=== PATIENT | female | born 1965 | race Caucasian/White ===

== ENCOUNTER → 2016-09-12 | Outpatient (CLI) | payer MEDICARE ==
[2016-09-12 14:52] LABS: ALANINE AMINOTRANSFERASE 37 U/L (9-52); ALBUMIN 4.4 g/dL (3.5-5.0); ALKALINE PHOSPHATASE 85 U/L (38-126); ANION GAP 12 (5-19); ASPARTATE AMINO TRANSFERASE 35 U/L (14-36); BILIRUBIN,DIRECT 0.2 mg/dL (0.0-0.4); BILIRUBIN,TOTAL 0.5 mg/dL (0.2-1.3); BLOOD UREA NITROGEN 9 mg/dL (7-20); CALCIUM 9.2 mg/dL (8.4-10.2); CARBON DIOXIDE 33 mmol/L (22-30); CHLORIDE 97 mmol/L (98-107); CREATININE RESULT 0.64 mg/dL (0.52-1.25); GLUCOSE 100 mg/dL (75-110); PHOSPHORUS 4.2 mg/dL (2.5-4.5); POTASSIUM 3.5 mmol/L (3.6-5.0); TOTAL PROTEIN 6.8 g/dL (6.3-8.2)
== END ==
LOC: OD 13:26
PROVIDERS: ATTEND Physician Assistant
DX: G89.4 Chronic pain syndrome (principal)
CPT/HCPCS: 36415; 80069; 80076

== ENCOUNTER 2017-01-12 21:14 | Emergency (ER) | payer MEDICARE ==
--- NOTE | 2017-01-12 22:38 | ER Document Report ---
ED General - General Chief Complaint: Ankle Swelling Stated Complaint: LEP PAIN Time Seen by Provider: 01/12/17 22:03 Notes: Patient is 51-year-old female presents with complaint of a dog leash got wrapped around her right lower leg. She says since then she has had some swelling and bruising is now going down into her ankle and foot. The leash wrapped around the mid part of her suero. Compartments are soft. She denies any numbness or tingling into her foot. No new injuries. No other complaints. He is not on blood thinners. TRAVEL OUTSIDE OF THE [place] IN LAST 30 DAYS: No - Related Data Allergies/Adverse Reactions: Sulfa (Sulfonamide Antibiotics) Adverse Reaction (Intermediate, Verified 21:19) Pruritis Past Medical History - Social History Smoking Status: Never Smoker Frequency of alcohol use: None Drug Abuse: None Family History: Reviewed & Not Pertinent Renal/ Medical History: Denies: Hx Peritoneal Dialysis Review of Systems - Review of Systems Notes: My Normal Review Basic REVIEW OF SYSTEMS: CONSTITUTIONAL : Denies fever, chills, or sweats. Denies recent illness. MUSCULOSKELETAL: Bruising and swelling in right lower leg. SKIN: Denies rash or skin lesions. NEUROLOGICAL: Denies altered mental status or loss of consciousness. Denies headache. Denies weakness or paralysis or loss of use of either side. Denies problems with gait or speech. Denies sensory or motor loss. ALL OTHER SYSTEMS REVIEWED AND NEGATIVE. Physical Exam - Vital signs Vitals: Temp Pulse Resp BP Pulse Ox 98.0 F 74 16 114/70 99 01/12/17 21:19 01/12/17 21:19 01/12/17 21:19 01/12/17 21:19 01/12/17 21:19 - Notes Notes: General Appearance: Well nourished, alert, cooperative, no acute distress, no obvious discomfort. Well-appearing. Vitals: reviewed, See vital signs table. Extremities: strength 5/5 in all extremities, good pulses in all extremities, some bruising on her right lower leg that starts around the mid suero works its way distally. Bruising is a circumferential. She does have some bruising has settled down around the ankle itself. Some mild tenderness to palpation around the mid suero and calf. All compartments are very soft. Distal pulses. Good distal sensation. She is able to bear weight. Skin: warm, dry, appropriate color, no rash Neuro: speech clear, oriented x 3, normal affect, responds appropriately to questions. Course - Re-evaluation Re-evalutation: 01/13/17 01:26 X-ray was performed to rule out a possible hairline fracture. It was negative. Patient appears just have some soft tissue injury. She has no signs of compartment syndrome. Her compartments are completely soft. I did explain to her compartment syndrome was in the signs and symptoms of this. I informed her to return to ER immediately if she has any other signs or symptoms such as increased swelling, tenseness or to palpation of the leg, or increasing pain. She agrees with plan and will be discharged home. Dictation of this chart was performed using voice recognition software; therefore, there may be some unintended grammatical errors. - Vital Signs Vital signs: Temp Pulse Resp BP Pulse Ox 98.0 F 71 17 120/76 100 01/12/17 23:35 01/12/17 23:35 01/12/17 23:35 01/12/17 23:35 01/12/17 23:35 Discharge - Discharge Clinical Impression: Contusion of leg, right Qualifiers: Encounter type: initial encounter Qualified Code(s): S80.11XA - Contusion of right lower leg, initial encounter Condition: Good Disposition: HOME, SELF-CARE Additional Instructions: Your xray was negative for any fracture. please keep your leg elevated on pillows when sleeping. Please go to the nearest ER immediately if you develop firmness in your leg or increasing pain. Forms: Return to Work
--- NOTE | 2017-01-12 23:01 | RADIOLOGY REPORT (SQ) ---
EXAM DESCRIPTION: TIBIA FIBULA RIGHT COMPLETED DATE/TIME: 01/12/2017 10:48 pm REASON FOR STUDY: pain COMPARISON: None. NUMBER OF VIEWS: Two views. TECHNIQUE: Two radiographic images acquired of the right tibia and fibula to include the knee and an kle in at least one projection. LIMITATIONS: None. FINDINGS: MINERALIZATION: Normal. BONES: No acute fracture or dislocation. No worrisome bone lesions. SOFT TISSUES: No obvious swelling or foreign body. OTHER: No other significant finding. IMPRESSION: NO RADIOGRAPHIC EVIDENCE OF ACUTE INJURY. TECHNICAL DOCUMENTATION: JOB ID: [id number] [employer]- All Rights Reserved
[2017-01-12 23:40] VITALS: BP 120/76
== END 2017-01-12 23:35 | disposition home or self-care (01) ==
LOC: ER 21:14
DX: S80.11XA Contusion of right lower leg, initial encounter (principal); M25.571 Pain in right ankle and joints of right foot; M79.89 Other specified soft tissue disorders; M79.604 Pain in right leg; X58.XXXA Exposure to other specified factors, initial encounter
CPT/HCPCS: 99283

== ENCOUNTER → 2017-04-24 | Outpatient (CLI) | payer MEDICARE ==
--- NOTE | 2017-04-27 12:31 | WOMENS IMAGING REPORT ---
EXAM DESCRIPTION: BILAT SCREENING MAMMO W/CAD COMPLETED DATE/TIME: 04/24/2017 10:02 am REASON FOR STUDY: ROUTINE SCREENING; Z12.31 Z12.31 ENCNTR SCREEN MAMMOGRAM FOR MALIGNANT NEOPLASM O F MELLY COMPARISON: None. TECHNIQUE: Standard craniocaudal and mediolateral oblique views of each breast recorded using [employer] System[employer] l acquisition. LIMITATIONS: None. FINDINGS: RIGHT BREAST MASSES: No suspicious masses. CALCIFICATIONS: No new or suspicious calcifications. ARCHITECTURAL DISTORTION: None. DEVELOPING DENSITY: None. ASYMMETRY: None noted. OTHER: No other significant findings. LEFT BREAST MASSES: No suspicious masses. CALCIFICATIONS: No new or suspicious calcifications. ARCHITECTURAL DISTORTION: None. DEVELOPING DENSITY: None. ASYMMETRY: Focal area of asymmetry in the upper-outer breast, located 10 cm from the nipple. This is most noticeable on the CC images. OTHER: No other significant findings. Read with the assistance of CAD. .[facility] - R2 Cenova Version 1.3 .[facility] - R2 Cenova Version 1.3 .[facility] - R2 Cenova Version 2.4 .[facility] R2 Cenova Version 2.4 .[facility] - R2 [employer] Version 9.2 IMPRESSION: Focal area of asymmetry in the upper-outer left breast. This is probably due to asymmet valentina parenchyma. No worrisome mammographic findings in the right breast. BREAST DENSITY: b. There are scattered areas of fibroglandular density. BIRAD: 0 Incomplete: Needs Additional Imaging Evaluation and/or prior Mammograms for Comparison. RECOMMENDATION: RECOMMENDED FOLLOW-UP: Recommend additional evaluation with breast tomosynthesis (pr eferred) or compression views of the left breast and follow-up ultrasound if indicated. Recommend ro utine screening mammography of the right breast. The patient will be contacted for additional imaging. COMMENT: The patient has been notified of the results by letter per [place] requirements. Additional no tification policies are in place for contacting patient with suspicious or incomplete findings. Quality ID #[id number]: The [employer] recommends an annual screening mammogram for women aged 40 years or over. This facility utilizes a reminder system to ensure that all patients receive reminder letters, and/or direct phone calls for appointments. This includes reminders for routine scr eening mammograms, diagnostic mammograms, or other Breast Imaging Interventions when appropriate. Th is patient will be placed in the appropriate reminder system. The [employer] (ACR) has developed recommendations for screening MRI of the breast s in certain patient populations, to be used in conjunction with mammography. Breast MRI surveillanc e may be appropriate for women with more than 20% lifetime risk of developing breast cancer as deter mined by genetic testing, significant family history of the disease, or history of mantle radiation f or Hodgkins Disease. ACR Practice Guidelines 2008. TECHNICAL DOCUMENTATION: FINDING NUMBER: (1) ASSESSMENT: (1) JOB ID: [id number] [employer]- All Rights Reserved
== END ==
LOC: WI 09:55
PROVIDERS: ATTEND Family Medicine
DX: Z12.31 Encounter for screening mammogram for malignant neoplasm of breast (principal)
CPT/HCPCS: 77067; G0202

== ENCOUNTER → 2017-05-23 | Outpatient (CLI) | payer MEDICARE ==
--- NOTE | 2017-05-23 10:44 | WOMENS IMAGING REPORT ---
EXAM DESCRIPTION: 3D DX MAMMO LEFT UNILAT; U/S BREAST UNILAT LIMITED COMPLETED DATE/TIME: 05/23/2017 9:25 am; 05/23/2017 10:18 am REASON FOR STUDY: N63.21; LEFT BREAST ASYMMETRY N63.21 N63.21 UNSPECIFIED LUMP IN THE LEFT BREAST, UPPER OUTER QUAD COMPARISON: 04/24/2017. TECHNIQUE: Additional images with true lateral and compression CC mammograms and lateral, MLO, and C C images with tomosynthesis. LIMITATIONS: None. FINDINGS: BREAST: left MASSES: No suspicious masses. CALCIFICATIONS: No new or suspicious calcifications. ARCHITECTURAL DISTORTION: None. DEVELOPING DENSITY: None. ASYMMETRY: None noted. OTHER: No other significant findings. BREAST ULTRASOUND: TECHNIQUE: Static and dynamic grayscale images acquired of the left breast in the specific areas of c linical/mammographic concern. Selected color Doppler images recorded. ELASTOGRAPHY PERFORMED: No. LIMITATIONS: None. FINDINGS: MASS: No mass identified. Normal glandular tissue. ELASTOGRAPHY CHARACTERISTICS: Not applicable. OTHER: No other significant finding. IMPRESSION: Density in the upper-outer left breast has the appearance of parenchyma with no underlyi ng mass or architectural distortion. No worrisome mammographic or sonographic findings. BREAST DENSITY: b. There are scattered areas of fibroglandular density. BIRAD: 2 Benign findings. RECOMMENDATION: RECOMMENDED FOLLOW UP: Birads 1 or 2: The patient should resume routine screening . SPECIFIC INTERVENTION/IMAGING/CONSULTATION RECOMMENDED:No additional intervention/ imaging/consultati on needed at this time. COMMUNICATION:The imaging findings were not discussed with the patient. Her referring provider has be en notified of the findings. COMMENT: The patient has been notified of the results by letter per MQSA requirements. Additional no tification policies are in place for contacting patient with suspicious or incomplete findings. Quality ID #[id number]: The [employer] recommends an annual screening mammogram for women aged 40 years or over. This facility utilizes a reminder system to ensure that all patients receive reminder letters, and/or direct phone calls for appointments. This includes reminders for routine scr eening mammograms, diagnostic mammograms, or other Breast Imaging Interventions when appropriate. Th is patient will be placed in the appropriate reminder system. The [employer] (ACR) has developed recommendations for screening MRI of the breast s in certain patient populations, to be used in conjunction with mammography. Breast MRI surveillanc e may be appropriate for women with more than 20% lifetime risk of developing breast cancer as deter mined by genetic testing, significant family history of the disease, or history of mantle radiation f or Hodgkins Disease. ACR Practice Guidelines 2008. DBT Technology DBT is a type of tomographic mammography. With conventional mammography, overlapping breast tissue ma y make lesions difficult to detect, even with good compression. DBT uses an x-ray tube that rotates a round the breast, taking images at different angles. These images are then combined to create thin sl ices of the breast that the radiologist can view as a 3D reconstruction. The [employer] unit can perform full-field digital mammograms (2D imaging); or DBT (3D imaging); or both, in a combination mode that quickly performs both the mammogram and the tomosynthesis scan while the breast is still compressed. PQRS 6045F: Fluoroscopic imaging is not utilized for breast tomosynthesis. TECHNICAL DOCUMENTATION: FINDING NUMBER: (1) ASSESSMENT: (1) JOB ID: [id number] [employer]- All Rights Reserved
== END ==
LOC: WI 09:04
PROVIDERS: ATTEND Family Medicine
DX: N63.21 Unspecified lump in the left breast, upper outer quadrant (principal)
CPT/HCPCS: 76642; G0279; G0206

== ENCOUNTER 2017-05-26 23:33 | Emergency (ER) | payer MEDICARE ==
[2017-05-26] MEDS ORDERED: ACETAMINOPHEN 325 MG TABLET PO ONE (23:52)
[2017-05-26] MEDS ORDERED: NORMAL SALINE 1000 ML 1,000 ML IV PRN (23:54)
--- NOTE | 2017-05-27 00:39 | ER Document Report ---
ED General - General Chief Complaint: Fever Stated Complaint: DIZZINESS Time Seen by Provider: 05/26/17 23:52 Notes: The patient is a 52-year-old female, past medical history multiple sclerosis, chronic pain, former smoker (quit 1 year ago), presents with 2 hours of lightheadedness, nausea and an episode of vomiting. EMS arrived, provided her with 4 mg IV Zofran and Tylenol because she had a fever, but she vomited the Tylenol. She is having a dull headache, but denies neck stiffness, blurry vision , cough, shortness of breath, abdominal pain, urinary symptoms, flank pain, rash , recent travel, back pain or chest pain. TRAVEL OUTSIDE OF THE [place] IN LAST 30 DAYS: No - Related Data Allergies/Adverse Reactions: Sulfa (Sulfonamide Antibiotics) Adverse Reaction (Intermediate, Verified 21:19) Pruritis Past Medical History - General Information source: Patient - Social History Smoking Status: Former Smoker Chew tobacco use (# tins/day): No Drug Abuse: None Family History: Reviewed & Not Pertinent Patient has suicidal ideation: No Patient has homicidal ideation: No - Past Medical History Cardiac Medical History: Reports: Hx Hypercholesterolemia - simvastatin, Hx Hypertension Renal/ Medical History: Denies: Hx Peritoneal Dialysis Review of Systems - Review of Systems Notes: REVIEW OF SYSTEMS: CONSTITUTIONAL: +fevers, -chills EENT: -eye pain, -difficulty swallowing, -nasal congestion CARDIOVASCULAR:-chest pain, -syncope. RESPIRATORY: -cough, -SOB GASTROINTESTINAL: -abdominal pain, +nausea, +vomiting, -diarrhea GENITOURINARY: -dysuria, -hematuria MUSCULOSKELETAL: -back pain, -neck pain SKIN: -rash or skin lesions. HEMATOLOGIC: -easy bruising or bleeding. LYMPHATIC: -swollen, enlarged glands. NEUROLOGICAL: -altered mental status or loss of consciousness, +headache, - neurologic symptoms PSYCHIATRIC: -anxiety, -depression. ALL OTHER SYSTEMS REVIEWED AND NEGATIVE. Physical Exam - Vital signs Vitals: Temp Pulse Resp BP Pulse Ox 103.9 F H 113 H 20 125/60 92 05/26/17 23:45 05/26/17 23:45 05/26/17 23:45 05/26/17 23:45 05/26/17 23:45 - Notes Notes: PHYSICAL EXAMINATION: GENERAL: Well-appearing, well-nourished and in no acute distress. HEAD: Atraumatic, normocephalic. EYES: Pupils equal round and reactive to light, extraocular movements intact, sclera anicteric, conjunctiva are normal. ENT: nares patent, oropharynx clear without exudates. Moist mucous membranes. NECK: Normal range of motion, supple without lymphadenopathy LUNGS: Breath sounds clear to auscultation bilaterally and equal. No wheezes rales or rhonchi. HEART: Tachycardia ABDOMEN: Soft, nontender, normoactive bowel sounds. No guarding, no rebound. No masses appreciated. EXTREMITIES: Normal range of motion, no pitting or edema. No cyanosis. NEUROLOGICAL: Cranial nerves grossly intact. Normal speech, normal gait. Normal sensory and motor exams. PSYCH: Normal mood, normal affect. SKIN: Warm, Dry, normal turgor, no rashes or lesions noted. Course - Re-evaluation Re-evalutation: Patient appears very well and is in no acute distress. She presented with nausea and vomiting that resolved after IV Zofran and IVF. BAdominal exam is completely non-tender. She also was found to have a fever that she was unaware of. Patient's chest x-ray did not show any acute abnormalities, flu swabs were negative, urine was negative for UTI and she is not having any symptoms of meningitis or encephalitis. Fever resolved with Tylenol and Motrin. Patient is not immunocompromised. Spoke to patient that we are unable to find a source for her fever at this time and since she appears well to continue Tylenol and Motrin with plenty of fluids. Her initial tachycardia on arrival to the ER resolved after IVF and antipyretics. Her oxygenation remained around 92%, but patient has smoked for decades and quit last year. No respiratory distress and lung sounds are clear. Gave patient very strict return precautions and she understands. - Vital Signs Vital signs: Temp Pulse Resp BP Pulse Ox 103.9 F H 113 H 20 125/60 92 05/26/17 23:45 05/26/17 23:45 05/26/17 23:45 05/26/17 23:45 05/26/17 23:45 - Laboratory Result Diagrams: 05/27/17 00:22 05/27/17 00:22 Laboratory results interpreted by me: 05/27/17 05/27/17 05/27/17 00:05 00:22 00:22 WBC 14.3 H Seg Neutrophils % 81.3 H Lymphocytes % 12.6 L Absolute Neutrophils 11.7 H Total Bilirubin 0.1 L Urine Glucose (UA) 50 H - Diagnostic Test Radiology reviewed: Image reviewed, Reports reviewed Radiology results interpreted by me: CXR: NAD Discharge - Discharge Clinical Impression: Fever Qualifiers: Fever type: unspecified Qualified Code(s): R50.9 - Fever, unspecified Nausea and vomiting Qualifiers: Vomiting type: unspecified Vomiting Intractability: non-intractable Qualified Code(s): R11.2 - Nausea with vomiting, unspecified Condition: Stable Disposition: HOME, SELF-CARE Additional Instructions: There is no source for your fever at this time. Continue to stay hydrated by drinking plenty of fluids. Use Zofran for any nausea. Tylenol and Motrin for any fevers. Return to the ER if you have any worsening symptoms or any other concerns. FEVER: Fever is the body's reaction to infection. Fever can also occur with illnesses that create fever-producing substances in the body. By itself, fever is not harmful. It helps the body fight invading germs. We are more concerned with: (1) What's causing the fever? (2) How can we keep you more comfortable until the fever goes away? Early in an illness, symptoms are often so vague that a diagnosis can't be made. If the doctor hasn't identified a clear cause for your fever, you will probably develop new symptoms within the next two days. Contact the doctor if you develop severe worsening headache, rash, chest pain, cough with yellow or green sputum, difficulty breathing, abdominal pain, or other new symptoms. There is no reason to treat a fever if you're comfortable. If the fever is causing aches, headache, and fatigue, you can treat it with ibuprofen (Advil , Nuprin, etc) or acetaminophen (Tylenol). Follow the directions on the bottle. Get plenty of liquids (three quarts per day). Rest. Physical work or sports will raise the temperature higher and make you feel much worse. Dress lightly. If you're chilling, this means the temperature is trying to go higher. Take ibuprofen or acetaminophen. When you feel sweaty and "feverish" the temperature is coming down. If the fever doesn't go away within two days or if you become more ill, call the doctor or return at once for re-examination. NORMAL EXAM AND WORKUP: At this time, with the exception of fever, your examination and workup show no significant abnormality. No significant abnormal physical findings were noted. All laboratory, EKG, and imaging (x-ray, CT scans, ultrasound) studies that were ordered show no significant abnormality. Although your examination and all studies that were ordered showed no significant abnormal finding, there are no examinations and no studies that are 100% accurate. There is always the possibility that some abnormality could exist and not be detected with physical examination or within the limits and capabilities of laboratory and other studies. You should return or follow up as you were instructed on your visit today for further evaluation if your symptoms do not resolve. VIRAL SYNDROME: The physician has diagnosed a likely viral infection. Viruses not only cause "colds," but can cause many different symptoms including generalized aching, fever, headache, cough, diarrhea, nausea, vomiting, and fatigue. The treatment, for the most part, is simply relief of symptoms. This means that antibiotics are usually not given. Rest, fluids, pain medications and, occasionally, medication for the specific symptoms that are most bothersome will be prescribed. Use good handwashing to avoid passing the virus to others. Shared toys should be cleaned with disinfectant. Clean the toilets, sinks, and counter surfaces in bathrooms. Launder clothing in hot water. Contact the physician if you develop any new or unusual symptoms such as severe headache, stiff neck, high fever, chest pain, productive cough, or shortness of breath. You should be rechecked if you don't see marked improvement within seven to 10 days. USE OF ACETAMINOPHEN (Tylenol): Acetaminophen may be taken for pain relief or fever control. It's much safer than aspirin, offering a wider range of "safe" dosages. It is safe during . Some brand names are Tylenol, Panadol, Datril, Anacin 3, Tempra, and Liquiprin. Acetaminophen can be repeated every four hours. The following are maximum recommended dosages: WEIGHT Dose Drops Elixir Chewable( 80mg) (LBS.) drprs=droppers tsp=teaspoon 6 40 mg 0.4 ml (1/2) 6-11 80 mg 0.8 ml (full) tsp 1 tab 12-16 120 mg 1 1/2 drprs 3/4 tsp 1 1/2 tabs 17-23 160 mg 2 drprs 1 tsp 2 tabs 24-30 240 mg 3 drprs 1 1/2 tsp 3 tabs 30-35 320 mg 2 tsp 4 tabs 36-41 360 mg 2 1/4 tsp 4 1/2 tabs 42-47 400 mg 2 1/2 tsp 5 tabs 48-53 480 mg 3 tsp 6 tabs 54-59 520 mg 3 1/4 tsp 6 1/2 tabs 60-64 560 mg 3 1/2 tsp 7 tabs 65-70 600 mg 3 3/4 tsp 7 1/2 tabs 71-76 640 mg 4 tsp 8 tabs 77-82 720 mg 4 1/2 tsp 9 tabs 83-88 800 mg 5 tsp 10 tabs >89 pounds or adults 650 mg to 900 mg Acetaminophen can be repeated every four hours. Maximum dose not to exceed 4000 mg a day. These maximum recommended dosages are slightly higher than the dosages written on the product container, but these dosages are very safe and below the toxic dosage for acetaminophen. FOLLOW-UP CARE: If you have been referred to a physician for follow-up care, call the physician s office for an appointment as you were instructed or within the next two days. If you experience worsening or a significant change in your symptoms, notify the physician immediately or return to the Emergency Department at any time for re-evaluation. VOMITING: Vomiting (or nausea without vomiting) can be caused by many other different problems. It can mean that something's wrong with the stomach, such as ulcers or inflammation or the intestinal tract, such as appendicitis. But it can also be a symptom of a problem that has nothing to do with the stomach or intestines. Vomiting is common with severe headaches, earaches, tonsillitis, and kidney infections, etc. We see it with pneumonia or heart attacks. Drugs can cause nausea and vomiting. Many abdominal problems cause vomiting; for example, gallstones, kidney stones, pancreatitis, and intestinal obstruction ( blocked bowels). In most cases, curing the vomiting depends on fixing the problem that caused it. For temporary relief, we may use an anti-nausea medicine. For home use, we can prescribe suppositories, chewable pills, pills that dissolve in the mouth, or liquid anti-nausea drugs. If the vomiting seems to be caused by a problem in the stomach, acid-suppressing drugs may be prescribed as well. It's important to avoid dehydration. Sip small amounts of clear liquids ( soft drinks, tea, broth, etc) . Try to take fluids frequently even if you are vomiting to prevent dehydration. Take increasing amounts of fluid and when liquids are being consumed successfully, advance to small amounts of bland food (toast, soups, mashed potatoes, etc.) until you are able to resume a regular diet. Avoid aspirin, tobacco, and alcohol. If the vomiting worsens, if the problem that's making you vomit worsens, or if there's evidence of bleeding in the stomach (such as black, tarry stool, or bloody or black vomit), you should return immediately. Also, return if abdominal pain worsens or becomes localized to one area or you develop high fever. Call your doctor if you aren't improved in 24 hours. INTRAVENOUS (I V) FLUIDS: As part of your care today, you received intravenous (IV) fluids. IV fluids are administered to patients who are dehydrated or to those who have certain chemical (electrolyte) abnormalities that need correcting. ANTINAUSEA MEDICATION: You have been given a medication to suppress nausea and vomiting. This type of medication can be given as a shot, pill, or suppository. It will usually last for many hours. Pills and shots usually last six to eight hours. For the typical illness, only one or two doses of the medication may be necessary. Mild lightheadedness may occur. This type of medicine can cause drowsiness. Do not drive or operate dangerous machinery while under its influence. Do not mix with alcohol. See your doctor at once if you have muscle spasms or tightness, or uncontrollable motions (particularly of the neck, mouth, or jaw). Persistent vomiting or severe lightheadedness should also be evaluated by the physician. FOLLOW-UP CARE: If you have been referred to a physician for follow-up care, call the physician s office for an appointment as you were instructed or within the next two days. If you experience worsening or a significant change in your symptoms, notify the physician immediately or return to the Emergency Department at any time for re-evaluation. Prescriptions: Ondansetron [Zofran Odt 4 mg Tablet] 1 - 2 tab PO Q4H PRN #15 tab.rapdis PRN Reason: For Nausea/Vomiting Referrals: JARROD DANIELSON MD [Primary Care Provider] - Follow up as needed
[2017-05-27 00:48] LABS: ABSOLUTE EOSINOPHILS # (AUTO) 0.1 10^3/uL (0.0-0.6); ABSOLUTE LYMPHOCYTES (AUTO) 1.8 10^3/uL (0.5-4.7); ABSOLUTE MONOCYTES (AUTO) 0.7 10^3/uL (0.1-1.4); ABSOLUTE NEUT (AUTO) 11.7 10^3/uL (1.7-8.2); BASOPHILS % (AUTO) 0.2 % (0-2); HEMATOCRIT 43.4 % (36.0-47.0); HEMOGLOBIN 14.2 g/dL (12.0-15.5); LYMPHOCYTES % (AUTO) 12.6 % (13-45); MEAN CORPUSCULAR HEMOGLOBIN 29.9 pg (27.0-33.4); MEAN CORPUSCULAR HGB CONC 32.7 g/dL (32.0-36.0); MEAN CORPUSCULAR VOLUME 91 fl (80-97); MONOCYTES % (AUTO) 4.9 % (3-13); PLATELET COUNT 212 10^3/uL (150-450); RED BLOOD COUNT 4.75 10^6/uL (3.72-5.28); RED CELL DISTRIBUTION WIDTH 13.8 % (11.5-14.0); SEGMENTED NEUTROPHILS % (AUTO) 81.3 % (42-78); TOTAL CELLS COUNTED % (AUTO) 100 %; WHITE BLOOD COUNT 14.3 10^3/uL (4.0-10.5)
[2017-05-27 01:03] LABS: ALANINE AMINOTRANSFERASE 24 U/L (9-52); ALBUMIN 3.9 g/dL (3.5-5.0); ALKALINE PHOSPHATASE 96 U/L (38-126); ANION GAP 11 (5-19); ASPARTATE AMINO TRANSFERASE 19 U/L (14-36); BILIRUBIN,DIRECT 0.1 mg/dL (0.0-0.4); BILIRUBIN,TOTAL 0.1 mg/dL (0.2-1.3); BLOOD UREA NITROGEN 15 mg/dL (7-20); CALCIUM 9.1 mg/dL (8.4-10.2); CARBON DIOXIDE 27 mmol/L (22-30); CHLORIDE 107 mmol/L (98-107); CREATINE KINASE 111 U/L (30-135); GLUCOSE 80 mg/dL (75-110); LIPASE 66.7 U/L (23-300); POTASSIUM 3.6 mmol/L (3.6-5.0); SODIUM 144.6 mmol/L (137-145); TOTAL PROTEIN 6.3 g/dL (6.3-8.2)
[2017-05-27 01:05] LABS: VENOUS BLOOD BASE EXCESS 0.3 mmol/L; VENOUS BLOOD HCO3 27.2 mmol/L (20-32); VENOUS BLOOD PCO2 53.2 mmHg (35-63); VENOUS BLOOD PH 7.33 (7.30-7.42)
[2017-05-27 01:06] LABS: APPEARANCE,URINE CLEAR; BILIRUBIN,URINE NEGATIVE (NEGATIVE); COLOR,URINE YELLOW; GLUCOSE, URINE 50 mg/dL (NEGATIVE); KETONES,URINE NEGATIVE (NEGATIVE); LEUKOCYTE ESTERASE,URINE NEGATIVE (NEGATIVE); NITRITE,URINE NEGATIVE (NEGATIVE); PROTEIN,URINE NEGATIVE (NEGATIVE); URINE SPECIFIC GRAVITY 1.017; UROBILINOGEN,URINE NEGATIVE mg/dL (<2.0)
[2017-05-27 01:21] LABS: A TYPE INFLUENZA AG NEGATIVE (NEGATIVE); B INFLUENZA AG NEGATIVE (NEGATIVE)
--- NOTE | 2017-05-27 02:11 | RADIOLOGY REPORT (SQ) ---
EXAM DESCRIPTION: CHEST SINGLE VIEW CLINICAL HISTORY: fever COMPARISON: None. FINDINGS: Single frontal view of the chest. The cardiomediastinal silhouette has normal size and contour. No consolidation, pneumothorax, or pleural effusion. No displaced rib fractures identified. Upper abdominal soft tissues are unremarkable. Leads overlie the chest. IMPRESSION: 1. No acute pulmonary process identified.
[2017-05-27] MEDS ORDERED: NAPROXEN 250 MG TABLET PO ONE (02:22)
[2017-05-27 03:03] VITALS: BP 98/69
--- NOTE | 2017-05-27 12:36 | EKG REPORT ---
SEVERITY:- NORMAL ECG - SINUS RHYTHM : Confirmed by: Sandra Trejo MD 27-May-2017 12:36:17
== END 2017-05-27 03:03 | disposition home or self-care (01) ==
LOC: ER 23:33
DX: R50.9 Fever, unspecified (principal); R11.2 Nausea with vomiting, unspecified; R42 Dizziness and giddiness; G35 Multiple sclerosis; R51 Headache; I10 Essential (primary) hypertension; Z88.2 Allergy status to sulfonamides; Z87.891 Personal history of nicotine dependence
CPT/HCPCS: 93005; 99284; 96360; 36415; 82550; 83690; 85025; 80053; 81001; 82803; 83605; 87804; 71010; 93010; A9270 ×2; J7030

== ENCOUNTER → 2019-01-17 | Outpatient (CLI) | payer MEDICARE ==
--- NOTE | 2019-01-17 14:42 | RADIOLOGY REPORT (SQ) ---
EXAM DESCRIPTION: MRI LT LOWER JOINT WITHOUT COMPLETED DATE/TIME: 01/17/2019 11:44 am REASON FOR STUDY: M25.562 PAIN IN LEFT KNEE M25.562 PAIN IN LEFT KNEE COMPARISON: None. TECHNIQUE: Leftknee images acquired and stored on PACS. Multiplanar images include fat sensitive se quences as T1, water sensitive sequences as FST2 or STIR, cartilage sensitive sequences as FSPD, and gradient echo sequences. LIMITATIONS: None. FINDINGS: JOINT AND BURSAE: No effusion. BONE CORTEX AND MARROW: No alteration of signal to suggest marrow replacement. No worrisome bone lesi ons. No occult fracture. ACL: High-grade chronic appearing tear with ganglion cyst formation. PCL: Increased signal in the proximal portion suggesting partial remote injury. MCL: Intact. No periligamentous edema or fluid. LCL: Intact. No periligamentous edema or fluid. MEDIAL MENISCUS: No acute tears. Mild truncation of the midbody consistent with prior debridement. LATERAL MENISCUS: No tears. No abnormal signal. MEDIAL COMPARTMENT: High-grade chondromalacia in the weight-bearing surface. No bone bruises or reac tive marrow edema. Small osteophytes. LATERAL COMPARTMENT: Mild chondromalacia. No bone bruises or reactive marrow edema. No osteophytes. PATELLA: No chondromalacia. No subchondral cysts. Medial and lateral retinacula intact. EXTENSOR MECHANISM: Intact. SOFT TISSUES: Small Bunch cyst. Adjacent muscles and subcutaneous tissues normal. Normal flow void in popliteal artery and vein. OTHER: No other significant finding. IMPRESSION: High-grade chronic appearing ACL tear with ganglion cyst formation.Increased signal in t he proximal portion of the PCL suggesting partial remote injury.Mild truncation of the medial menisca l midbody consistent with prior debridement. TECHNICAL DOCUMENTATION: JOB ID: [id number] [place]-72 2010 [employer]- All Rights Reserved Reading location - IP/workstation name: [email or web address]
== END ==
LOC: RAD 11:05
PROVIDERS: ATTEND Orthopaedic Surgery
DX: M25.562 Pain in left knee (principal); M22.42 Chondromalacia patellae, left knee; M23.8X2 Other internal derangements of left knee; M67.462 Ganglion, left knee

== ENCOUNTER 2019-01-31 13:45 | Inpatient (IN) | payer MEDICARE ==
[2019-01-31] MEDS ORDERED: NORMAL SALINE 1000 ML 1,000 ML IV ONE (14:21)
[2019-01-31 14:29] LABS: APPEARANCE,URINE CLEAR; BILIRUBIN,URINE NEGATIVE (NEGATIVE); COLOR,URINE STRAW; GLUCOSE, URINE NEGATIVE (NEGATIVE); KETONES,URINE NEGATIVE (NEGATIVE); LEUKOCYTE ESTERASE,URINE NEGATIVE (NEGATIVE); NITRITE,URINE NEGATIVE (NEGATIVE); PROTEIN,URINE NEGATIVE (NEGATIVE); URINE SPECIFIC GRAVITY 1.008; UROBILINOGEN,URINE NEGATIVE mg/dL (<2.0)
[2019-01-31 14:46] LABS: MEAN CORPUSCULAR HGB CONC 32.7 g/dL (32.0-36.0); MEAN CORPUSCULAR VOLUME 89 fl (80-97); PLATELET COUNT 221 10^3/uL (150-450); RED BLOOD COUNT 5.18 10^6/uL (3.72-5.28); RED CELL DISTRIBUTION WIDTH 13.9 % (11.5-14.0); WHITE BLOOD COUNT 22.1 10^3/uL (4.0-10.5)
[2019-01-31 14:53] LABS: ALBUMIN 4.1 g/dL (3.5-5.0); ALKALINE PHOSPHATASE 76 U/L (38-126); ANION GAP 8 (5-19); ASPARTATE AMINO TRANSFERASE 29 U/L (14-36); BILIRUBIN,DIRECT 0.2 mg/dL (0.0-0.4); BILIRUBIN,TOTAL 0.6 mg/dL (0.2-1.3); BLOOD UREA NITROGEN 15 mg/dL (7-20); CALCIUM 9.1 mg/dL (8.4-10.2); CARBON DIOXIDE 29 mmol/L (22-30); CHLORIDE 103 mmol/L (98-107); CREATINE KINASE 228 U/L (30-135); GLUCOSE 101 mg/dL (75-110); POTASSIUM 4.2 mmol/L (3.6-5.0); TOTAL PROTEIN 6.7 g/dL (6.3-8.2)
[2019-01-31] MEDS ORDERED: VANCOMYCIN HCL INJ 1000 MG VIAL IV ONE (15:00)
[2019-01-31] MEDS ORDERED: PIPERACILLIN/TAZOBACTAM 3.375 GM VIAL IV ONE (15:01)
[2019-01-31 15:05] LABS: ABSOLUTE LYMPHOCYTES# (MANUAL) 3.1 10^3/uL (0.5-4.7); ABSOLUTE MONOCYTES # (MANUAL) 0.2 10^3/uL (0.1-1.4); BAND NEUTROPHILS % (MANUAL) 1 % (3-5); BASOPHILS % (MANUAL) 0 % (0-2); EOSINOPHILS % (MANUAL) 0 % (0-6); LYMPHOCYTES % (MANUAL) 13 % (13-45); MONOCYTES % (MANUAL) 1 % (3-13); SEGMENTED NEUTROPHILS % (MAN) 84 % (42-78); TOTAL CELLS COUNTED 100
[2019-01-31 15:06] LABS: OVALOCYTES SLIGHT; PLATELET COMMENT ADEQUATE; POIKILOCYTOSIS SLIGHT
--- NOTE | 2019-01-31 15:08 | RADIOLOGY REPORT (SQ) ---
EXAM DESCRIPTION: CHEST SINGLE VIEW COMPLETED DATE/TIME: 01/31/2019 2:56 pm REASON FOR STUDY: Fever, tachycardia, hypotension COMPARISON: 01/20/2018 NUMBER OF VIEWS: One view. TECHNIQUE: Single frontal radiographic image of the chest acquired. LIMITATIONS: None. FINDINGS: LUNGS AND PLEURA: Stable appearance. MEDIASTINUM AND HILAR STRUCTURES: Stable heart size and mediastinal structures. HEART AND VASCULAR STRUCTURES: Stable appearance. SUPPORT DEVICES: Appropriate location without change. BONES: No acute findings. OTHER: No other significant finding. IMPRESSION: STABLE APPEARANCE OF THE CHEST. SUPPORT DEVICES UNCHANGED. TECHNICAL DOCUMENTATION: JOB ID: [id number] [employer]- All Rights Reserved Reading location - IP/workstation name: [email or web address]
--- NOTE | 2019-01-31 15:22 | ER Document Report ---
Entered by ALEAJ MACK SCRIBE 01/31/19 [id number] Acting as scribe for:ARLENE FRAUSTO MD ED Fever - General Chief Complaint: Fever Stated Complaint: COUGH Time Seen by Provider: 01/31/19 13:55 Primary Care Provider: FLORI HARRIS MD [ACTIVE STAFF] - Follow up as needed Mode of Arrival: Ambulatory Information source: Patient Notes: Patient is a 53 year old female that presents to the emergency department today with complaints of fevers this morning when she woke up of 102.7. Patient went to an urgent care and was sent here for evaluation. Patient states that last year she had a similar episode to this and she spent several days in the ICU for pneumonia and sepsis. Patient states she vomited once yesterday at 0700. Patient complains of a headache today but denies shortness of breath or cough. TRAVEL OUTSIDE OF THE [place] IN LAST 30 DAYS: No - Related Data Allergies/Adverse Reactions: norepinephrine [From Levophed (bitartrate)] Allergy (Verified 01/31/19 13:54) Sulfa (Sulfonamide Antibiotics) Adverse Reaction (Intermediate, Verified 01/12/17 21:19) Pruritis Past Medical History - General Information source: Patient - Social History Smoking Status: Former Smoker - 30 year history Cigarette use (# per day): No Frequency of alcohol use: None Drug Abuse: None Lives with: Family Family History: Reviewed & Not Pertinent, DM, Hyperlipidemia, Hypertension Patient has suicidal ideation: No Patient has homicidal ideation: No - Medical History Notes: Hx MS, Guillain-Geiger - Past Medical History Cardiac Medical History: Reports: Hx Hypercholesterolemia - simvastatin Pulmonary Medical History: Reports: Hx Pneumonia Past Surgical History: Reports: Hx Neurologic Surgery - C4-6 fusion, Other - arthroscopy left knee Review of Systems - Review of Systems Constitutional: See HPI, Fever EENT: No symptoms reported Cardiovascular: No symptoms reported Respiratory: denies: Cough, Short of breath Gastrointestinal: See HPI, Vomiting Genitourinary: No symptoms reported Female Genitourinary: No symptoms reported Musculoskeletal: No symptoms reported Skin: No symptoms reported Hematologic/Lymphatic: No symptoms reported Neurological/Psychological: See HPI, Headaches -: Yes All other systems reviewed and negative Physical Exam - Vital signs Vitals: Resp Pulse Ox 13 95 01/31/19 14:14 01/31/19 14:14 Interpretation: Febrile - Notes Notes: Physical Exam: General: Alert, appears well. Obese. HEENT: Normocephalic. Atraumatic. PERRL. Extraocular movements intact. Oropharynx clear. Neck: Supple. Non-tender. Respiratory: No respiratory distress. Clear and equal breath sounds bilaterally. Cardiovascular: Regular rate and rhythm. Abdominal: Obese. Non-tender. No distension. Normal Bowel Sounds. Back: No gross abnormalities. Extremities: Moves all four extremities. Upper extremities: Normal inspection. Normal ROM. Lower extremities: Normal inspection. No edema. Normal ROM. Neurological: Normal cognition. AAOx4. Normal speech. Psychological: Normal affect. Normal Mood. Skin: Warm. Diaphoretic. Normal color. Course - Vital Signs Vital signs: Temp Pulse Resp BP Pulse Ox 99.4 F 115 H 16 112/71 92 01/31/19 14:16 01/31/19 14:16 01/31/19 14:16 01/31/19 14:16 01/31/19 14:16 - Laboratory Result Diagrams: 01/31/19 14:11 01/31/19 14:11 Laboratory results interpreted by me: 01/31/19 01/31/19 14:11 14:11 WBC 22.1 H Seg Neuts % (Manual) 84 H Band Neutrophils % 1 L Monocytes % (Manual) 1 L Abs Neuts (Manual) 18.8 H Creatine Kinase 228 H - Diagnostic Test Radiology reviewed: Image reviewed - Stable chest x-ray - Consults Dr. James Time consulted: 15:10 Consulted provider: will come to ER - Stable appearance of chest port device support devices Critical Care Note - Critical Care Note Total time excluding time spent on procedures (mins): 35 Discharge - Discharge Clinical Impression: Tachycardia, Multiple sclerosis Fever Qualifiers: Fever type: unspecified Qualified Code(s): R50.9 - Fever, unspecified Leukocytosis Qualifiers: Leukocytosis type: unspecified Qualified Code(s): D72.829 - Elevated white blood cell count, unspecified Sepsis Qualifiers: Sepsis type: sepsis due to unspecified organism Sepsis acute organ dysfunction status: without acute organ dysfunction Qualified Code(s): A41.9 - Sepsis, unspecified organism Hypotension Qualifiers: Hypotension type: unspecified hypotension type Qualified Code(s): I95.9 - Hypotension, unspecified Condition: Good Disposition: ADMITTED INPATIENT Admitting Provider: Jacob (Hospitalist) Unit Admitted: ICU Referrals: FLORI HARRIS MD [ACTIVE STAFF] - Follow up as needed Scribe Attestation: 01/31/19 15:20 I personally performed the services described in the documentation, reviewed and edited the documentation which was dictated to the scribe in my presence, and it accurately records my words and actions. I personally performed the services described in the documentation, reviewed and edited the documentation which was dictated to the scribe in my presence, and it accurately records my words and actions.
[2019-01-31] MEDS ORDERED: IPRATROPIUM/ALBUTEROL 0.5-2.5 MG/3 ML AMPUL NEB PRN (15:35)
[2019-01-31] MEDS ORDERED: VANCOMYCIN HCL 0 MG in DEXTROSE 5%-WATER 250 ML IV NR (15:45)
[2019-01-31] MEDS ORDERED: NORMAL SALINE 1000 ML 1,000 ML IV SCH (15:45)
--- NOTE | 2019-01-31 15:50 | PDOC H&P ---
History of Present Illness Admission Date/PCP: 01/31/19 15:31 JARROD DANIELSON MD Patient complains of: Fever History of Present Illness: JIMY BRANCH is a 53 year old female with a past medical history of GERD and multiple sclerosis on Copaxone. She presents with fever preceded by Uncontrolled acid reflux and an episode of nonbilious vomit. She also complains of productive cough, headache and a sinus quality to her voice. She denies stiff neck, postnasal drip or facial pain. In the emergency room she is found to have sepsis with hypotension, tachycardia, leukocytosis but an otherwise unremarkable work-up. Chest x-ray shows considerable infiltrate in the right base similar to previous of months ago when she was admitted with aspiration pneumonia. Patient is otherwise felt well and denies recent change of medication regiment and denies infectious contacts. Past Medical History Cardiac Medical History: Reports: Hyperlipidema - simvastatin Denies: Hypertension Pulmonary Medical History: Reports: Pneumonia Past Surgical History Past Surgical History: Reports: Other - arthroscopy left knee Social History Information Source: Patient, [facility] Lives with: Family Smoking Status: Former Smoker - 30 year history Frequency of Alcohol Use: None Hx Recreational Drug Use: No Drugs: None Hx Prescription Drug Abuse: No - Advance Directive Resuscitation Status: Full Code Family History Family History: DM, Hyperlipidemia, Hypertension Parental Family History Reviewed: Yes Children Family History Reviewed: Yes Sibling(s) Family History Reviewed.: Yes Medication/Allergy Allergies/Adverse Reactions: norepinephrine [From Levophed (bitartrate)] Allergy (Verified 01/31/19 13:54) Sulfa (Sulfonamide Antibiotics) Adverse Reaction (Intermediate, Verified 21:19) Pruritis Review of Systems Constitutional: ABSENT: chills, fever(s), headache(s), weight gain, weight loss Eyes: ABSENT: visual disturbances Ears: ABSENT: hearing changes Nose, Mouth, and Throat: PRESENT: as per HPI, headache(s). ABSENT: mouth pain, sore throat, vertigo Cardiovascular: ABSENT: chest pain, dyspnea on exertion, edema, orthropnea, palpitations Respiratory: ABSENT: cough, hemoptysis Gastrointestinal: PRESENT: heartburn. ABSENT: abdominal pain, constipation, diarrhea, hematemesis, hematochezia, nausea, vomiting Genitourinary: ABSENT: dysuria, hematuria Musculoskeletal: ABSENT: joint swelling Integumentary: ABSENT: rash, wounds Neurological: ABSENT: abnormal gait, abnormal speech, confusion, dizziness, focal weakness, syncope Psychiatric: ABSENT: anxiety, depression, homidical ideation, suicidal ideation Endocrine: ABSENT: cold intolerance, heat intolerance, polydipsia, polyuria Hematologic/Lymphatic: ABSENT: easy bleeding, easy bruising Physical Exam Vital Signs: Temp Pulse Resp BP Pulse Ox 99.4 F 115 H 16 112/71 92 01/31/19 14:16 01/31/19 14:16 01/31/19 14:16 01/31/19 14:16 01/31/19 14:16 Intake & Output 01/30/19 01/31/19 02/01/19 11:59 11:59 11:59 Intake Total 1000 Balance 1000 Weight 94.4 kg General appearance: PRESENT: cooperative, mild distress, well-developed, well- nourished Head exam: PRESENT: atraumatic, normocephalic Eye exam: PRESENT: conjunctiva pink, EOMI, PERRLA. ABSENT: scleral icterus Ear exam: PRESENT: normal external ear exam Mouth exam: PRESENT: moist, tongue midline Neck exam: ABSENT: carotid bruit, JVD, lymphadenopathy, meningismus, tenderness, thyromegaly Respiratory exam: PRESENT: crackles, tachypnea. ABSENT: rales, rhonchi, wheezes Cardiovascular exam: PRESENT: RRR. ABSENT: diastolic murmur, rubs, systolic murmur Pulses: PRESENT: normal dorsalis pedis pul Vascular exam: PRESENT: normal capillary refill GI/Abdominal exam: PRESENT: normal bowel sounds, soft. ABSENT: distended, guarding, mass, organolmegaly, rebound, tenderness Rectal exam: PRESENT: deferred Extremities exam: PRESENT: full ROM. ABSENT: calf tenderness, clubbing, pedal edema Neurological exam: PRESENT: alert, awake, oriented to person, oriented to place, oriented to time, oriented to situation, CN II-XII grossly intact. ABSENT: motor sensory deficit Psychiatric exam: PRESENT: appropriate affect, normal mood. ABSENT: homicidal ideation, suicidal ideation Skin exam: PRESENT: dry, intact, warm. ABSENT: cyanosis, rash Results Laboratory Results: 01/31/19 14:11 01/31/19 14:11 01/31/19 01/31/19 01/31/19 14:11 14:11 14:11 WBC 22.1 H RBC 5.18 Hgb 15.0 Hct 46.0 MCV 89 MCH 29.0 MCHC 32.7 RDW 13.9 Plt Count 221 Seg Neutrophils % Not Reportable Sodium 140.2 Potassium 4.2 Chloride 103 Carbon Dioxide 29 Anion Gap 8 BUN 15 Creatinine 0.94 Est GFR ( Amer) > 60 Glucose 101 Calcium 9.1 Magnesium 1.8 Total Bilirubin 0.6 AST 29 Alkaline Phosphatase 76 Total Protein 6.7 Albumin 4.1 Urine Color STRAW Urine Appearance CLEAR Urine pH 5.0 Ur Specific [place] 1.008 Urine Protein NEGATIVE Urine Glucose (UA) NEGATIVE Urine Ketones NEGATIVE Urine Blood NEGATIVE Urine Nitrite NEGATIVE Ur Leukocyte Esterase NEGATIVE Urine WBC (Auto) 1 Urine RBC (Auto) 0 01/31/19 01/31/19 14:11 14:11 Creatine Kinase 228 H Troponin I < 0.012 Impressions: Chest X-Ray 01/31/19 14:22 IMPRESSION: STABLE APPEARANCE OF THE CHEST. SUPPORT DEVICES UNCHANGED. Assessment and Plan - Diagnosis (1) Pneumonia Qualifiers: Pneumonia type: due to unspecified organism Laterality: right Lung location: lower lobe of lung Qualified Code(s): J18.1 - Lobar pneumonia, unspecified organism Is this a current diagnosis for this admission?: Yes Plan: Likely aspiration pneumonia from GI versus sinus source. Pneumonia care set deployed, Protonix, Flonase, empiric antibiotics, follow-up blood culture and CBC (2) Sepsis Qualifiers: Sepsis type: sepsis due to unspecified organism Sepsis acute organ dysfu nction status: without acute organ dysfunction Qualified Code(s): A41.9 - Sepsis, unspecified organism Is this a current diagnosis for this admission?: Yes Plan: Secondary to #1, IV fluid challenge, dopamine as needed, follow-up blood culture (3) Multiple sclerosis Is this a current diagnosis for this admission?: Yes Plan: Immunosuppression on Copaxone, consider stress dose steroids. - Inpatient Certification Medical Necessity: Need Close Monitoring Due to Risk of Patient Decompensation
[2019-01-31] MEDS: DOPAMINE HCL/DEXTROSE 5%-WATER 800 MG/250 ML RTUINJ IV PRN ×2 (16:48→17:12)
[2019-01-31] MEDS: NORMAL SALINE 1000 ML 1,000 ML IV PRN ×3 (17:29→22:27)
[2019-01-31] MEDS ORDERED: DEXTROSE 5%-WATER 250 ML with PHENYLEPHRINE HCL 40 MG IV PRN ×2 (17:51)
[2019-01-31] MEDS ORDERED: PHENYLEPHRINE HCL INJ/PF 10 MG/1 ML SDV ONE ×2 (17:54)
[2019-01-31] MEDS ORDERED: PIPERACILLIN SODIUM/TAZOBACTAM 4.5 GM in NORMAL SALINE 100 ML IV SCH (18:00)
[2019-01-31] MEDS: FLUTICASONE NASAL SPRAY 50 MCG/SPRY 120 SPRAY/16 GM NASL SCH (19:56)
[2019-01-31] MEDS: DOCUSATE SODIUM 100 MG CAPSULE PO SCH (19:57)
[2019-01-31] MEDS: PIPERACILLIN SODIUM/TAZOBACTAM 4.5 GM in NORMAL SALINE 100 ML IV SCH (20:05)
[2019-01-31] MEDS: KETOROLAC TROMETHAMINE INJ/PF 30 MG/1 ML SDV IV PRN (20:27)
[2019-01-31] MEDS: HEPARIN SOD (PORCINE) 5,000 UNIT/ML 1 ML VIAL SUBCUT SCH (21:59)
[2019-01-31] MEDS: PANTOPRAZOLE SODIUM 40 MG VIAL IV SCH (22:00)
[2019-02-01] MEDS ORDERED: DOPAMINE HCL/DEXTROSE 5%-WATER 800 MG/250 ML RTUINJ IV PRN (01:55)
[2019-02-01] MEDS ORDERED: DEXTROSE 5%-WATER 250 ML with PHENYLEPHRINE HCL 40 MG IV PRN ×2 (01:55)
[2019-02-01] MEDS: PIPERACILLIN SODIUM/TAZOBACTAM 4.5 GM in NORMAL SALINE 100 ML IV SCH ×4 (02:07→21:34)
[2019-02-01 03:48] LABS: ABSOLUTE BASOPHILS # (AUTO) 0.1 10^3/uL (0.0-0.2); ABSOLUTE EOSINOPHILS # (AUTO) 0.1 10^3/uL (0.0-0.6); ABSOLUTE LYMPHOCYTES (AUTO) 3.7 10^3/uL (0.5-4.7); ABSOLUTE MONOCYTES (AUTO) 1.2 10^3/uL (0.1-1.4); ABSOLUTE NEUT (AUTO) 11.8 10^3/uL (1.7-8.2); BASOPHILS % (AUTO) 0.3 % (0-2); EOSINOPHILS % (AUTO) 0.6 % (0-6); HEMATOCRIT 43.3 % (36.0-47.0); HEMOGLOBIN 14.1 g/dL (12.0-15.5); MEAN CORPUSCULAR HGB CONC 32.6 g/dL (32.0-36.0); MEAN CORPUSCULAR VOLUME 89 fl (80-97); MONOCYTES % (AUTO) 6.9 % (3-13); PLATELET COUNT 193 10^3/uL (150-450); RED BLOOD COUNT 4.87 10^6/uL (3.72-5.28); RED CELL DISTRIBUTION WIDTH 14.2 % (11.5-14.0); SEGMENTED NEUTROPHILS % (AUTO) 70.2 % (42-78); TOTAL CELLS COUNTED % (AUTO) 100 %; WHITE BLOOD COUNT 16.8 10^3/uL (4.0-10.5)
[2019-02-01 04:11] LABS: ANION GAP 6 (5-19); BLOOD UREA NITROGEN 11 mg/dL (7-20); CARBON DIOXIDE 24 mmol/L (22-30); CHLORIDE 110 mmol/L (98-107); GLUCOSE 147 mg/dL (75-110); POTASSIUM 3.4 mmol/L (3.6-5.0)
[2019-02-01] MEDS: KETOROLAC TROMETHAMINE INJ/PF 30 MG/1 ML SDV IV PRN ×2 (04:30→10:58)
[2019-02-01] MEDS: VANCOMYCIN HCL 1,250 MG in DEXTROSE 5%-WATER 250 ML IV SCH ×2 (05:10→18:39)
[2019-02-01] MEDS: HEPARIN SOD (PORCINE) 5,000 UNIT/ML 1 ML VIAL SUBCUT SCH ×3 (05:11→21:34)
[2019-02-01] MEDS: FLUTICASONE NASAL SPRAY 50 MCG/SPRY 120 SPRAY/16 GM NASL SCH ×2 (05:11→18:37)
[2019-02-01] MEDS: DOCUSATE SODIUM 100 MG CAPSULE PO SCH ×2 (10:57→18:39)
[2019-02-01] MEDS: ACETAMINOPHEN 325 MG TABLET PO PRN (10:58)
[2019-02-01] MEDS: PANTOPRAZOLE SODIUM 40 MG VIAL IV SCH ×2 (10:58→21:34)
--- NOTE | 2019-02-01 15:25 | PDOC PROGRESS REPORT ---
Subjective Progress Note for:: 02/01/19 Subjective:: Patient is sitting up in bed. She does not appear to be in significant pain. Her chronic pain medications have been on hold due to her low blood pressure and she does report being uncomfortable. Reason For Visit: SEPSIS,BRONCHITIS,SINUSITIS Physical Exam Vital Signs: Temp Pulse Resp BP Pulse Ox 97.7 F 66 9 L 105/55 L 100 02/01/19 14:00 02/01/19 14:00 02/01/19 15:01 02/01/19 15:00 02/01/19 15:01 Intake & Output 01/31/19 02/01/19 02/02/19 06:59 06:59 06:59 Intake Total 4468 166 Output Total 3250 760 Balance 1218 -594 Weight 97.1 kg General appearance: PRESENT: no acute distress, cooperative, well-developed Head exam: PRESENT: atraumatic, normocephalic Ear exam: PRESENT: normal external ear exam. ABSENT: bleeding, drainage Respiratory exam: PRESENT: clear to auscultation rowdy, symmetrical, unlabored. ABSENT: rales, rhonchi, tachypnea, wheezes Cardiovascular exam: PRESENT: RRR, +S1, +S2 GI/Abdominal exam: PRESENT: normal bowel sounds, soft. ABSENT: distended, ten derness Extremities exam: PRESENT: pedal edema. ABSENT: calf tenderness Neurological exam: PRESENT: alert, awake, oriented to person, oriented to place, oriented to time, oriented to situation, CN II-XII grossly intact Psychiatric exam: PRESENT: appropriate affect. ABSENT: agitated, anxious Focused psych exam: ABSENT: delusional, restlessness Skin exam: PRESENT: dry, normal color, warm. ABSENT: rash Results Laboratory Results: 02/01/19 03:35 02/01/19 03:35 01/31/19 01/31/19 02/01/19 14:11 16:00 03:35 WBC 16.8 H RBC 4.87 Hgb 14.1 Hct 43.3 MCV 89 MCH 29.0 MCHC 32.6 RDW 14.2 H Plt Count 193 Seg Neutrophils % 70.2 Sodium Potassium Chloride Carbon Dioxide Anion Gap BUN Creatinine Est GFR ( Amer) Glucose Lactic Acid 1.2 Calcium Magnesium 1.8 02/01/19 03:35 WBC RBC Hgb Hct MCV MCH MCHC RDW Plt Count Seg Neutrophils % Sodium 140.3 Potassium 3.4 L Chloride 110 H Carbon Dioxide 24 Anion Gap 6 BUN 11 Creatinine 0.63 Est GFR ( Amer) > 60 Glucose 147 H Lactic Acid Calcium 8.0 L Magnesium 01/31/19 01/31/19 14:11 14:11 Creatine Kinase 228 H Troponin I < 0.012 Impressions: Chest X-Ray 01/31/19 14:22 IMPRESSION: STABLE APPEARANCE OF THE CHEST. SUPPORT DEVICES UNCHANGED. Assessment and Plan - Diagnosis (1) Pneumonia Qualifiers: Pneumonia type: due to unspecified organism Laterality: right Lung location: lower lobe of lung Qualified Code(s): J18.1 - Lobar pneumonia, unspecified organism Is this a current diagnosis for this admission?: Yes Plan: Likely aspiration pneumonia from GI versus sinus source. Pneumonia care set deployed, Protonix, Flonase, empiric antibiotics, follow-up blood culture and CBC 02/01/2019-patient feels better today. I will repeat a chest x-ray tomorrow. No significant rhonchi or rales in the lungs. We will continue antibiotics at this time. The patient had an episode of infection with severe sepsis last year. We would like to be more aggressive than not to avoid another episode. (2) Sepsis Qualifiers: Sepsis type: sepsis due to unspecified organism Sepsis acute organ dysfunction status: without acute organ dysfunction Qualified Code(s): A41.9 - Sepsis, unspecified organism Is this a current diagnosis for this admission?: Yes Plan: Secondary to #1, IV fluid challenge, dopamine as needed, follow-up blood culture 02/01/2019-the patient is now off of her pressors. Vital signs are stable. We will continue antibiotics as an infection was a source. (3) Multiple sclerosis Is this a current diagnosis for this admission?: Yes Plan: Immunosuppression on Copaxone, consider stress dose steroids. 02/01/2019-holding Copaxone at this time. Will wait on stress dose of steroid at this time. 1 g of Solu-Medrol can be a typical dose for multiple sclerosis patients. (4) Leukocytosis Qualifiers: Leukocytosis type: unspecified Qualified Code(s): D72.829 - Elevated white blood cell count, unspecified Is this a current diagnosis for this admission?: Yes Plan: 02/01/2019-with the current treatment regimen including antibiotics patient's w kaylie blood cell count is down to 16,000. Continue to monitor. - Time Time Spent with patient: Less than 15 minutes Medications reviewed and adjusted accordingly: Yes Anticipated discharge: Home
[2019-02-01] MEDS ORDERED: MORPHINE SULFATE IR 15 MG TABLET ONE (15:50)
[2019-02-01] MEDS: MORPHINE SULFATE IR 15 MG TABLET PO SCH (15:58)
[2019-02-01] MEDS ORDERED: NIACIN 500 MG PO SCH (18:00)
[2019-02-01] MEDS: CYCLOSPORINE 0.05% OPH EMULSIO 0.4 ML DROPERETTE OU SCH (18:37)
[2019-02-01] MEDS: FLUOXETINE HCL 20 MG CAPSULE PO SCH (18:38)
[2019-02-01] MEDS: GABAPENTIN 300 MG CAPSULE PO SCH ×2 (18:38→23:15)
[2019-02-01] MEDS ORDERED: TOPIRAMATE 25 MG TABLET PO SCH (22:00)
[2019-02-01] MEDS ORDERED: SIMVASTATIN 10 MG TABLET PO SCH (22:00)
[2019-02-01] MEDS ORDERED: SIMVASTATIN 5 MG PO SCH (22:00)
[2019-02-01] MEDS ORDERED: (PENDING PHARMACY ID) (Calcium Carbonate [Calcium] 600 MG) PO SCH (22:00)
[2019-02-01] MEDS ORDERED: MORPHINE SULFATE IR 15 MG TABLET PO SCH (22:00)
[2019-02-01] MEDS ORDERED: CALCIUM CARBONATE 500 MG TABLET PO SCH (22:00)
[2019-02-02] MEDS: PIPERACILLIN SODIUM/TAZOBACTAM 4.5 GM in NORMAL SALINE 100 ML IV SCH ×2 (03:11→08:10)
[2019-02-02] MEDS: ACETAMINOPHEN 325 MG TABLET PO PRN (03:13)
[2019-02-02] MEDS: GABAPENTIN 300 MG CAPSULE PO SCH ×2 (06:26→12:12)
[2019-02-02] MEDS: VANCOMYCIN HCL 1,250 MG in DEXTROSE 5%-WATER 250 ML IV SCH (06:26)
[2019-02-02] MEDS: FLUTICASONE NASAL SPRAY 50 MCG/SPRY 120 SPRAY/16 GM NASL SCH (06:27)
[2019-02-02] MEDS: HEPARIN SOD (PORCINE) 5,000 UNIT/ML 1 ML VIAL SUBCUT SCH (06:27)
[2019-02-02 07:10] LABS: ABSOLUTE EOSINOPHILS # (AUTO) 0.3 10^3/uL (0.0-0.6); ABSOLUTE LYMPHOCYTES (AUTO) 2.8 10^3/uL (0.5-4.7); ABSOLUTE MONOCYTES (AUTO) 0.5 10^3/uL (0.1-1.4); ABSOLUTE NEUT (AUTO) 3.9 10^3/uL (1.7-8.2); ANION GAP 5 (5-19); BASOPHILS % (AUTO) 0.2 % (0-2); BLOOD UREA NITROGEN 10 mg/dL (7-20); CALCIUM 8.8 mg/dL (8.4-10.2); CARBON DIOXIDE 26 mmol/L (22-30); CHLORIDE 110 mmol/L (98-107); EOSINOPHILS % (AUTO) 3.9 % (0-6); GLUCOSE 96 mg/dL (75-110); HEMATOCRIT 37.8 % (36.0-47.0); HEMOGLOBIN 12.7 g/dL (12.0-15.5); MEAN CORPUSCULAR HEMOGLOBIN 29.6 pg (27.0-33.4); MEAN CORPUSCULAR HGB CONC 33.6 g/dL (32.0-36.0); MEAN CORPUSCULAR VOLUME 88 fl (80-97); MONOCYTES % (AUTO) 6.9 % (3-13); PLATELET COUNT 175 10^3/uL (150-450); POTASSIUM 3.3 mmol/L (3.6-5.0); RED CELL DISTRIBUTION WIDTH 13.9 % (11.5-14.0); TOTAL CELLS COUNTED % (AUTO) 100 %; WHITE BLOOD COUNT 7.5 10^3/uL (4.0-10.5)
[2019-02-02] MEDS ORDERED: MORPHINE SULFATE IR 15 MG TABLET PO SCH (08:00)
[2019-02-02 08:24] VITALS: BP 102/60
--- NOTE | 2019-02-02 09:44 | RADIOLOGY REPORT (SQ) ---
EXAM DESCRIPTION: CHEST SINGLE VIEW COMPLETED DATE/TIME: 02/02/2019 7:49 am REASON FOR STUDY: Dyspnea COMPARISON: 01/31/2019 NUMBER OF VIEWS: One view. TECHNIQUE: Single frontal radiographic image of the chest acquired. LIMITATIONS: None. FINDINGS: LUNGS AND PLEURA: Subsegmental primarily linear density in the lung bases. No consolidati on. No effusions. MEDIASTINUM AND HEART: Stable heart size and mediastinal structures. BONY STRUCTURES: No acute findings. HARDWARE: None. OTHER: No other significant finding. IMPRESSION: Basilar atelectasis. No infiltrate. TECHNICAL DOCUMENTATION: JOB ID: [id number] Reading location - IP/workstation name: [email or web address]
[2019-02-02] MEDS ORDERED: ASPIRIN 325 MG TABLET PO SCH (10:00)
[2019-02-02] MEDS ORDERED: ARIPIPRAZOLE 5 MG TABLET PO SCH (10:00)
[2019-02-02] MEDS ORDERED: POTASSIUM CHLORIDE 10 MEQ CAPSULE.ER PO SCH ×2 (10:00→11:00)
[2019-02-02] MEDS ORDERED: FOLIC ACID 1 MG TABLET PO SCH (10:00)
[2019-02-02] MEDS ORDERED: PANTOPRAZOLE SODIUM 40 MG TABLET.DR PO SCH (10:00)
--- NOTE | 2019-02-02 10:10 | PDOC DISCHARGE SUMMARY ---
General - Admit/Disc Date/PCP Admission Date/Primary Care Provider: 01/31/19 15:31 JARROD SANCHEZ MD Discharge Date: 02/02/19 - Discharge Diagnosis (1) Pneumonia Is this a current diagnosis for this admission?: Yes Summary: The patient is on immunosuppressant medication for her multiple sclerosis. She came in with an elevated white blood cell count of 22,000. She had a similar episode last year when in fact she became septic from pneumonia. Her chest x- ray on admission was not significant for obvious pneumonia however other etiologies of infection were ruled out. When treated for a community-acquired pneumonia the patient responded favorably and quickly with dual antibiotic therapy. Being immunosuppressed it was most likely bacterial pneumonia with pneumococcus and atypical bacteria certainly consideration. She did extremely well on dual antibiotic therapy. She was discharged on Ceftin and azithromycin and in fact has a follow-up with her primary care provider tomorrow. (2) Sepsis Is this a current diagnosis for this admission?: Yes Summary: The sepsis was likely from the pneumonia. She initially required vasopressor therapy and fluids but responded extremely well to antibiotics and the sepsis resolved by the next day. (3) Multiple sclerosis Is this a current diagnosis for this admission?: Yes Summary: She will continue her Copaxone. I suggested she restart it on Sunday as opposed to tomorrow. She does have a follow-up with her provider tomorrow. (4) Leukocytosis Is this a current diagnosis for this admission?: Yes Summary: The elevated white blood count was due to infection. Her white blood cell count has normalized with antibiotic therapy. (5) Hypokalemia Is this a current diagnosis for this admission?: Yes Summary: The patient has chronic low potassium. Serum potassium was just below the lower limit normal and so she will get 40 mg today. She has an appointment with Dr. Sanchez tomorrow and she could determine further potassium chloride supplementation. - Additional Information Resuscitation Status: Full Code Prescriptions: Cefuroxime Axetil [Ceftin 500 mg Tablet] 1 tab PO BID 7 Days #14 tablet Azithromycin [Zithromax 250 mg Tablet] 250 mg PO DAILY #5 tablet Home Medications: Aripiprazole [Abilify] 7.5 mg PO DAILY 01/31/19 Aspirin [Aspirin 325 mg Tablet] 325 mg PO DAILY 01/31/19 Baclofen [Baclofen 10 mg Tablet] 20 mg PO Q8 01/31/19 Calcium Carbonate [Calcium] 600 mg PO QHS 01/31/19 Cyclosporine 0.05% Oph Emulsio [Restasis 0.05% Oph Emulsion Pf 0.4 ml] 1 drop OU BID 01/31/19 Dexlansoprazole [Dexilant 60 mg Capsule] 60 mg PO DAILY 01/31/19 Fentanyl [Duragesic 100 Mcg/Hr Transdermal Patch] 1 patch TD Q3D 01/31/19 Fluoxetine HCl [Prozac] 40 mg PO BID 01/31/19 Folic Acid [Folvite 1 mg Tablet] 2 mg PO DAILY 01/31/19 Furosemide [Lasix 80 mg Tablet] 80 mg PO DAILY 01/31/19 Gabapentin [Neurontin] 600 mg PO QID 01/31/19 Levocetirizine Dihydrochloride [Xyzal] 5 mg PO QHS 01/31/19 Morphine Sulfate [Morphine Ir 15 mg Tablet] 15 mg PO NOON 01/31/19 Morphine Sulfate [Morphine Ir 15 mg Tablet] 30 mg PO QAM 01/31/19 Morphine Sulfate [Morphine Ir 15 mg Tablet] 30 mg PO QHS 01/31/19 Niacin 500 mg PO QPM 01/31/19 [place]-3/Dha/Epa/Fish Oil [Fish Oil 1,000 mg Softgel] 1,000 mg PO DAILY 01/31/19 Potassium Chloride [Klor-Con 10 Meq Capsule ER] 20 meq PO DAILY 01/31/19 Simvastatin [Zocor 5 mg Tablet] 5 mg PO QHS 01/31/19 Topiramate [Topamax] 50 mg PO QHS 01/31/19 Glatiramer Acetate [Copaxone] 40 mg SQ 02/01/19 Acetaminophen [Tylenol 325 mg Tablet] 650 mg PO Q4HP PRN tablet 02/02/19 Azithromycin [Zithromax 250 mg Tablet] 250 mg PO DAILY #5 tablet 02/02/19 Cefuroxime Axetil [Ceftin 500 mg Tablet] 1 tab PO BID 7 Days #14 tablet 02/02/19 Fluticasone Propionate [Flonase Nasal [place] 50 Mcg/[place] 16 gm] 2 spray NASL Q12A spray.pump 02/02/19 History of Present Illness Patient complains of: Feeling poorly History of Present Illness: JIMY BRANCH is a 53 year old female with a history of multiple sclerosis currently on immunosuppressive therapy. She began to feel poorly and presented to the emergency department. She is at risk for infection being on imm unosuppressants. Her white blood cell count was 22,000. There was no obvious source of infection however last year she had a similar presentation with pneumonia causing sepsis. Because of the risk of recurrence and the fact that her low blood pressure required vasopressor therapy she was referred to the hospitalist for an ICU admission. Hospital Course Hospital Course: She actually had a good hospital course. She responded very quickly to antibiotic therapy. Because of her hypotension her pain medications were decreased. At discharge she was instructed to return to her regular pain management protocol. She will resume her other medications and restart her Copaxone on Sunday. Antibiotic scripts were electronically sent to her pharmacy. As noted above she happens to have an appointment with her primary provider tomorrow. Physical Exam Vital Signs: Temp Pulse Resp BP Pulse Ox 98.2 F 56 L 16 102/60 98 02/02/19 07:33 02/02/19 07:33 02/02/19 07:33 02/02/19 07:33 02/02/19 07:33 Intake & Output 02/01/19 02/02/19 02/03/19 06:59 06:59 06:59 Intake Total 4468 976 Output Total 3250 1595 Balance 1218 -619 Weight 97.1 kg 81 kg General appearance: PRESENT: no acute distress, cooperative, well-developed, other Head exam: PRESENT: atraumatic, normocephalic Mouth exam: PRESENT: moist - Resting comfortably in bed, tongue midline Respiratory exam: PRESENT: clear to auscultation rowdy, symmetrical, unlabored. ABSENT: rales, rhonchi, tachypnea, wheezes Cardiovascular exam: PRESENT: RRR, +S1, +S2 GI/Abdominal exam: PRESENT: normal bowel sounds, soft. ABSENT: distended, tenderness Neurological exam: PRESENT: alert, awake, oriented to person, oriented to place, oriented to time, oriented to situation, CN II-XII grossly intact Psychiatric exam: PRESENT: normal mood. ABSENT: agitated, anxious Focused psych exam: ABSENT: delusional, restlessness Results Laboratory Results: 02/02/19 06:28 02/02/19 06:28 09/08/19 09/08/19 06:28 06:28 WBC 7.5 RBC 4.30 Hgb 12.7 Hct 37.8 MCV 88 MCH 29.6 MCHC 33.6 RDW 13.9 Plt Count 175 Seg Neutrophils % 52.0 Sodium 140.5 Potassium 3.3 L Chloride 110 H Carbon Dioxide 26 Anion Gap 5 BUN 10 Creatinine 0.66 Est GFR ( Amer) > 60 Glucose 96 Calcium 8.8 Magnesium 2.0 01/31/19 01/31/19 14:11 14:11 Creatine Kinase 228 H Troponin I < 0.012 Impressions: Chest X-Ray 02/02/19 15:15 IMPRESSION: Basilar atelectasis. No infiltrate. Qualifiers - * PATIENT BEING DISCHARGED WITH ANY OF THE FOLLOWING DIAGNOSIS: No Acute Heart Failure - Is this a Heart Failure Patient?: No Plan Time Spent: Greater than 30 Minutes
[2019-02-02] MEDS: PANTOPRAZOLE SODIUM 40 MG VIAL IV SCH (10:30)
[2019-02-02] MEDS: DOCUSATE SODIUM 100 MG CAPSULE PO SCH (10:36)
[2019-02-02] MEDS: FLUOXETINE HCL 20 MG CAPSULE PO SCH (10:37)
[2019-02-02] MEDS: CYCLOSPORINE 0.05% OPH EMULSIO 0.4 ML DROPERETTE OU SCH (10:38)
[2019-02-02] MEDS: MORPHINE SULFATE IR 15 MG TABLET PO SCH (12:12)
== END 2019-02-02 12:20 | disposition home or self-care (01) | DRG 871 ==
LOC: ER 13:45 → EH 15:31 → ICU 19:12 → 4S 02-01 18:56
PROVIDERS: ADMIT Internal Medicine; ATTEND Internal Medicine
DX: A41.9 Sepsis, unspecified organism (principal); J18.9 Pneumonia, unspecified organism; G61.0 Guillain-Barre syndrome; G35 Multiple sclerosis; K21.9 Gastro-esophageal reflux disease without esophagitis; E78.00 Pure hypercholesterolemia, unspecified; Z87.891 Personal history of nicotine dependence; Z79.82 Long term (current) use of aspirin; Z79.899 Other long term (current) drug therapy
CPT/HCPCS: 36415; 71045; 80048; 80053; 81001; 82550; 83605; 83735; 84484; 85025; 87040; 96360; 99291; J1265; J1644; J1885; J2370; J2543; J3370; J3490; J7030; J7050; J7060; S0164

== ENCOUNTER 2020-02-09 17:38 | Emergency (ER) | payer MEDICARE ==
--- NOTE | 2020-02-09 19:03 | ER Document Report ---
ED Medical Screen (RME) - General Chief Complaint: Leg Swelling Stated Complaint: LEG SWELLING/DRAINAGE Time Seen by Provider: 02/09/20 18:51 Primary Care Provider: JARROD DANIELSON MD [Primary Care Provider] - Follow up as needed Notes: Patient is a 54-year-old female who presents emergency department with a chief complaint of leg swelling. Patient reports she has had bilateral leg swelling over the past few weeks. She states she was seen by her PCP and had arterial and venous Dopplers performed. She states that they were normal. She states that her legs have been red. Her doctor did place her on Keflex for possible cellulitis. Patient states last Sunday, which was 3 days ago, she did hit her left lower anterior leg when a screwdriver causing a puncture wound. Patient states that since then she has been oozing a clear fluid out of her leg. Is on a diuretic. Denies chest pain, shortness of breath. TRAVEL OUTSIDE OF THE [place] IN LAST 30 DAYS: No - Related Data Allergies/Adverse Reactions: norepinephrine [From Levophed (bitartrate)] Allergy (Verified 02/09/20 18:49) Sulfa (Sulfonamide Antibiotics) Adverse Reaction (Intermediate, Verified 02/09/20 18:49) Pruritis Past Medical History - Past Medical History Cardiac Medical History: Reports: Hx Hypercholesterolemia - simvastatin Denies: Hx Atrial Fibrillation, Hx Congestive Heart Failure, Hx Coronary Artery Disease, Hx Heart Attack, Hx Hypertension, Hx Peripheral Vascular Disease, Hx Pulmonary Embolism, Hx Heart Murmur Pulmonary Medical History: Reports: Hx COPD - says she was told she is but not being treated, Hx Pneumonia Denies: Hx Asthma, Hx Bronchitis, Hx Respiratory Failure, Hx Sleep Apnea, Hx Tuberculosis Neurological Medical History: Denies: Hx Cerebrovascular Accident, Hx Seizures, Hx Parkinson's Disease Endocrine Medical History: Denies: Hx Hyperthyroidism, Hx Hypothyroidism Renal/ Medical History: Reports: Hx Kidney Stones - with 1991. Denies: Hx End Stage Renal Disease, Hx Peritoneal Dialysis Malignancy Medical History: Denies: Hx Lung Cancer GI Medical History: Reports: Hx Gastroesophageal Reflux Disease. Denies: Hx Crohn's Disease, Hx Hiatal Hernia, Hx Irritable Bowel, Hx Liver Failure, Hx Pancreatitis, Hx Ulcer Musculoskeltal Medical History: Reports Hx Arthritis, Denies Hx Fibromyalgia, Reports Hx Multiple Sclerosis, Denies Hx Muscular Dystrophy Psychiatric Medical History: Reports: Hx Depression Denies: Hx Bipolar Disorder, Hx Dementia, Hx Post Traumatic Stress Disorder, Hx Schizophrenia Traumatic Medical History: Denies: Hx Fractures Past Surgical History: Reports: Hx Neurologic Surgery - C4-6 fusion, Hx Tonsillectomy, Other - arthroscopy left knee. Denies: Hx Appendectomy, Hx Bowel Surgery, Hx Section, Hx Cholecystectomy, Hx Colostomy, Hx Coronary Artery Bypass Graft, Hx Gastric Bypass Surgery, Hx Herniorrhaphy, Hx Hysterectomy, Hx Mastectomy, Hx Tubal Ligation Physical Exam - Vital signs Vitals: Temp Pulse Resp BP Pulse Ox 98.6 F 96 16 132/76 H 98 02/09/20 18:16 02/09/20 18:16 02/09/20 18:16 02/09/20 18:16 02/09/20 18:16 Course - Re-evaluation Re-evalutation: 02/09/20 19:02 Patient has pitting edema to bilateral lower extremities. Patient does have a puncture wound to the left anterior leg that is oozing a serous fluid. Both legs are erythematous. - Vital Signs Vital signs: Temp Pulse Resp BP Pulse Ox 98.6 F 96 16 132/76 H 98 02/09/20 18:16 02/09/20 18:16 02/09/20 18:16 02/09/20 18:16 02/09/20 18:16 Doctor's Discharge - Discharge Referrals: JARROD DANIELSON MD [Primary Care Provider] - Follow up as needed
[2020-02-09 19:47] LABS: ABSOLUTE EOSINOPHILS # (AUTO) 0.3 10^3/uL (0.0-0.6); ABSOLUTE LYMPHOCYTES (AUTO) 2.6 10^3/uL (0.5-4.7); ABSOLUTE MONOCYTES (AUTO) 0.6 10^3/uL (0.1-1.4); BASOPHILS % (AUTO) 0.5 % (0-2); HEMATOCRIT 40.5 % (36.0-47.0); HEMOGLOBIN 13.5 g/dL (12.0-15.5); LYMPHOCYTES % (AUTO) 30.2 % (13-45); MEAN CORPUSCULAR HEMOGLOBIN 30.2 pg (27.0-33.4); MEAN CORPUSCULAR HGB CONC 33.3 g/dL (32.0-36.0); MEAN CORPUSCULAR VOLUME 91 fl (80-97); MONOCYTES % (AUTO) 7.1 % (3-13); PLATELET COUNT 223 10^3/uL (150-450); RED BLOOD COUNT 4.46 10^6/uL (3.72-5.28); RED CELL DISTRIBUTION WIDTH 14.1 % (11.5-14.0); SEGMENTED NEUTROPHILS % (AUTO) 58.2 % (42-78); TOTAL CELLS COUNTED % (AUTO) 100 %; WHITE BLOOD COUNT 8.7 10^3/uL (4.0-10.5)
[2020-02-09 19:53] LABS: APPEARANCE,URINE CLEAR; BILIRUBIN,URINE NEGATIVE (NEGATIVE); COLOR,URINE YELLOW; GLUCOSE, URINE NEGATIVE (NEGATIVE); KETONES,URINE NEGATIVE (NEGATIVE); LEUKOCYTE ESTERASE,URINE NEGATIVE (NEGATIVE); NITRITE,URINE NEGATIVE (NEGATIVE); PROTEIN,URINE 30 mg/dL (NEGATIVE); URINE SPECIFIC GRAVITY 1.029
[2020-02-09 21:00] LABS: ALBUMIN 3.8 g/dL (3.5-5.0); ALKALINE PHOSPHATASE 94 U/L (38-126); ANION GAP 5 (5-19); ASPARTATE AMINO TRANSFERASE 26 U/L (14-36); BILIRUBIN,DIRECT 0.3 mg/dL (0.0-0.4); BILIRUBIN,TOTAL 0.3 mg/dL (0.2-1.3); BLOOD UREA NITROGEN 20 mg/dL (7-20); CARBON DIOXIDE 29 mmol/L (22-30); CHLORIDE 108 mmol/L (98-107); GLUCOSE 112 mg/dL (75-110); POTASSIUM 4.8 mmol/L (3.6-5.0); TOTAL PROTEIN 6.4 g/dL (6.3-8.2)
--- NOTE | 2020-02-10 01:01 | ER Document Report ---
ED General - General Chief Complaint: Leg Swelling Stated Complaint: LEG SWELLING/DRAINAGE Time Seen by Provider: 02/09/20 18:51 Primary Care Provider: JARROD DANIELSON MD [Primary Care Provider] - Follow up as needed TRAVEL OUTSIDE OF THE [place] IN LAST 30 DAYS: No - HPI Notes: Patient is a 54-year-old female who presents to the emergency department for evaluation. She has had lower extremity edema over the last several months. She has had an evaluation by her primary care provider, which include arterial and venous Dopplers, these were both found to be negative. She states that her edema waxes and wanes. She does sleep with her legs elevated, admits she sleeps in a recliner. She denies any chest pain or shortness of breath. No fevers or chills. She is currently on an antibiotic because of "the redness" which she states she has been taking since last week. She struck her left leg with a screwdriver, states that since then it has been leaking clear liquid. Her tetanus is up-to-date. - Related Data Allergies/Adverse Reactions: norepinephrine [From Levophed (bitartrate)] Allergy (Verified 02/09/20 18:49) Sulfa (Sulfonamide Antibiotics) Adverse Reaction (Intermediate, Verified 02/09/20 18:49) Pruritis Home Medications: Prozac 40 mg twice daily, Abilify 7.5 mg daily, Neurontin 600 mg 4 times daily, ferrous sulfate 325 mg daily, aspirin 325 mg daily, folate 1 mg daily, Dexilant 60 mg daily, meloxicam 50 mg daily, baclofen 20 mg 3 times daily, morphine sulfate 300 mg 3 times daily, Restasis each eye every 12 hours, Topamax 50 mg at bedtime, Xyzal 5 mg daily, simvastatin 5 mg daily, vitamin D 5000 units daily, niacin 500 mg daily, calcium 600 mg daily, vitamin C 2000 mg daily, olopatadine 2 drops daily, Flonase daily, cilostazol 50 mg twice daily, Keflex 750 mg twice daily, torsemide 20 mg daily Past Medical History - General Information source: Patient - Social History Smoking Status: Never Smoker Chew tobacco use (# tins/day): No Frequency of alcohol use: None Drug Abuse: None Family History: DM, Hyperlipidemia, Hypertension Patient has homicidal ideation: No - Past Medical History Cardiac Medical History: Reports: Hx Hypercholesterolemia - simvastatin Denies: Hx Atrial Fibrillation, Hx Congestive Heart Failure, Hx Coronary Artery Disease, Hx Heart Attack, Hx Hypertension, Hx Peripheral Vascular Disease, Hx Pulmonary Embolism, Hx Heart Murmur Pulmonary Medical History: Reports: Hx COPD - says she was told she is but not being treated, Hx Pneumonia Denies: Hx Asthma, Hx Bronchitis, Hx Respiratory Failure, Hx Sleep Apnea, Hx Tuberculosis Neurological Medical History: Denies: Hx Cerebrovascular Accident, Hx Seizures, Hx Parkinson's Disease Endocrine Medical History: Denies: Hx Hyperthyroidism, Hx Hypothyroidism Renal/ Medical History: Reports: Hx Kidney Stones - with 1991. Denies: Hx End Stage Renal Disease, Hx Peritoneal Dialysis Malignancy Medical History: Denies: Hx Lung Cancer GI Medical History: Reports: Hx Gastroesophageal Reflux Disease. Denies: Hx Crohn's Disease, Hx Hiatal Hernia, Hx Irritable Bowel, Hx Liver Failure, Hx Pancreatitis, Hx Ulcer Musculoskeletal Medical History: Reports Hx Arthritis, Denies Hx Fibromyalgia, Reports Hx Multiple Sclerosis, Denies Hx Muscular Dystrophy Psychiatric Medical History: Reports: Hx Depression Denies: Hx Bipolar Disorder, Hx Dementia, Hx Post Traumatic Stress Disorder, Hx Schizophrenia Traumatic Medical History: Denies: Hx Fractures Past Surgical History: Reports: Hx Neurologic Surgery - C4-6 fusion, Hx Tonsillectomy, Other - arthroscopy left knee. Denies: Hx Appendectomy, Hx Bowel Surgery, Hx Section, Hx Cholecystectomy, Hx Colostomy, Hx Coronary Artery Bypass Graft, Hx Gastric Bypass Surgery, Hx Herniorrhaphy, Hx Hysterectomy, Hx Mastectomy, Hx Tubal Ligation Review of Systems - Review of Systems Constitutional: No symptoms reported EENT: No symptoms reported Cardiovascular: No symptoms reported Respiratory: No symptoms reported Gastrointestinal: No symptoms reported Genitourinary: No symptoms reported Musculoskeletal: See HPI Skin: See HPI Neurological/Psychological: No symptoms reported Physical Exam - Vital signs Vitals: Temp Pulse Resp BP Pulse Ox 98.6 F 96 16 132/76 H 98 02/09/20 18:16 02/09/20 18:16 02/09/20 18:16 02/09/20 18:16 02/09/20 18:16 - Notes Notes: Vital signs reviewed, please refer to chart. Head is normocephalic, atraumatic. Neck is supple without meningismus. Heart is regular rate and rhythm. Lungs are clear to auscultation bilaterally. Abdomen is soft, nontender, normoactive bowel sounds throughout. Extremities without cyanosis, clubbing. She does have 3+ pitting edema to bilateral lower extremities with diffuse erythema to up. It is up to the pretibial region. She has a puncture wound noted to the left anterior suero, distal aspect, just lateral to the tibial spine. There is a small amount of transudate of clear fluid seeping from the wound. Posterior calves are nontender. Peripheral pulses are equal. Course - Re-evaluation Re-evalutation: 02/10/20 01:05 Patient presents to the emergency department for evaluation. She has bilateral lower extremity edema. She has had negative arterial and venous Dopplers recently. She has erythema, but I do not suspect a cellulitis, I strongly suspect a vasculitic reason for this erythema. She was counseled on weight loss, positioning, compression stockings. I do not see any overt signs of infection, and believe that the puncture wound is simply leaking transudate of fluid secondary to her significant edema. She is to follow-up with her primary care provider in regards to this. She voiced understanding. She is to return to the ED with worsening or new concerning symptoms of any sort. - Vital Signs Vital signs: Temp Pulse Resp BP Pulse Ox 97.9 F 61 16 119/64 97 02/09/20 22:08 02/09/20 22:08 02/09/20 18:16 02/09/20 22:08 02/09/20 22:08 - Laboratory Result Diagrams: 02/09/20 19:31 02/09/20 19:31 Laboratory results interpreted by me: 02/09/20 02/09/20 02/09/20 19:31 19:31 19:31 RDW 14.1 H Chloride 108 H Glucose 112 H NT-Pro-B Natriuret Pep 189 H Urine Protein Urine Urobilinogen Urine Ascorbic Acid 02/09/20 19:31 RDW Chloride Glucose NT-Pro-B Natriuret Pep Urine Protein 30 H Urine Urobilinogen 2.0 H Urine Ascorbic Acid 40 H Discharge - Discharge Clinical Impression: Bilateral lower extremity edema Condition: Stable Disposition: HOME, SELF-CARE Instructions: Dependent Edema ([facility]), Edema, Peripheral ([facility]) Additional Instructions: Elevate your legs. Continue your home medications as prescribed. You need to follow-up with your primary care provider this week. You should also use compression stockings. If you develop fevers, vomiting, increased pain, shortness of breath, or any other new or concerning symptoms, please return immediately to the emergency department for evaluation. Referrals: JARROD DANIELSON MD [Primary Care Provider] - Follow up as needed
[2020-02-10 01:45] VITALS: BP 118/60
== END 2020-02-10 01:43 | disposition home or self-care (01) ==
LOC: ER 17:38
DX: R60.9 Edema, unspecified (principal); E78.00 Pure hypercholesterolemia, unspecified
CPT/HCPCS: 36415; 80053; 81001; 83880; 85025; 99283